=== PATIENT | male | born 1995 | race Caucasian/White ===

== ENCOUNTER 2017-08-19 18:44 | Emergency (ER) | payer SELFPAY ==
[~2017-08-19] VITALS: Ht 177.8 cm; Wt 86.4 kg
[2017-08-19] MEDS ORDERED: IBUPROFEN 800 MG TABLET PO ONE (20:00)
[2017-08-19 20:11] VITALS: BP 130/75
== END 2017-08-19 20:15 | disposition home or self-care (01) ==
LOC: EMS 18:46
DX: M54.9 Dorsalgia, unspecified (principal); V49.49XA Driver injured in collision with other motor vehicles in traffic accident, initial encounter; Y93.89 Activity, other specified; Y92.89 Other specified places as the place of occurrence of the external cause; Y99.8 Other external cause status
CPT/HCPCS: 99283